=== PATIENT | male | born 1950 | race African-American/Black ===

== ENCOUNTER 2017-08-10 07:33 | Inpatient (IN) | payer OTHER ==
[~2017-08-10] VITALS: Ht 182.9 cm; Wt 78.1 kg
[2017-08-10] VITALS (36 sets, daily range): BP systolic 91–147; BP diastolic 62–96
--- NOTE | ~2017-08-10 | EEG ---
[facility] [place] [address] ELECTROENCEPHALOGRAM Name: SIVAN BAUMANN Room #: 240-P ADM IN M.R.#: [id number] Admission: 08/10/17 Attend Phys: Freddie Amaya DO Discharge: Date of : 54 Report #: [id number] THIS REPORT FOR: //name// CC: Freddie Garcia DATE OF SERVICE: 08/11/2017 This patient is being evaluated for seizures. EEG was done by placing the electrodes by standard 10-20 system of electrode placement. Both referential and sequential montages were used for recording. Background activity in this patient's EEG is poorly formed. It would appear it is about 6 Hz and 30 microvolt. A lot of movement in both frontal areas was noticed. Dust Sampler did not notice any eye movements there. It is more prominent on the right side as compared to the left side. Photic stimulation is unremarkable. IMPRESSION: This is an abnormal electroencephalogram because it is slow in generalized fashion. He appeared to be having slowing in both frontal areas, especially on the right side. Clinical correlation is recommended. Thank you very much for this referral. <ELECTRONICALLY SIGNED> By: Deangelo Fuentes MD 08/11/17 1816 1141 1149 Deangelo Fuentes MD /nt
--- NOTE | ~2017-08-10 | EEG ---
[facility] [place] [address] ELECTROENCEPHALOGRAM Name: SIVAN BAUMANN Room #: 403-P ADM IN M.R.#: [id number] Admission: 08/10/17 Attend Phys: Freddie Amaya DO Discharge: Date of : 54 Report #: [id number] THIS REPORT FOR: //name// CC: Freddie Garcia This patient's EEG was done for comparison with the last. EEG is still masked by a lot of artifact. It is very difficult to interpret. It would appear that this patient's EEG is showing periodic activities in the right frontal area. That can be an eye movement artifact, but if there is clinical correlation present, that may represent seizure activity coming from there. Photic stimulation is unremarkable. IMPRESSION: This is an abnormal EEG. It would appear that this patient is showing epileptiform activity in the right frontal area. However, that can also be an eye movement artifact and therefore, clinical correlation is recommended to see if there is any seizure activity on the left side. Thank you very much for this referral. <ELECTRONICALLY SIGNED> By: Deangelo Fuentes MD 08/14/17 1901 0603 0647 Deangelo Fuentes MD /nt
--- NOTE | ~2017-08-10 | HC ---
[facility] [place] [address] CONSULTATION Name: SIVAN BAUMANN Room #: 240-P ADM IN M.R.#: [id number] Admission: 08/10/17 Attend Phys: Freddie Amaya DO Discharge: Date of : 54 Report #: [id number] THIS REPORT FOR: //name// CC: Freddie Garcia DATE OF SERVICE: 08/10/2017 PRIMARY CARE PHYSICIAN: [facility]. REFERRING PHYSICIAN: Freddie Amaya DO. REASON FOR REFERRAL: Respiratory failure, seizure disorder. HISTORY OF PRESENT ILLNESS: The patient is a 66-year-old male who was brought to the Emergency Room after a seizure activity. In the ER, the patient was felt to be unstable, tachycardic, hypertensive and then hypotensive. The patient was electively intubated to protect the airways. A pulmonary consultation was requested. The patient has a history of seizure disorder. He is normally followed at [facility]. He is on seizure medications. Depakote level obtained in the ER was subtherapeutic. According to the family, patient has been on Vimpat, Keppra and Depakote. According to the son, the patient was in his usual state of health until yesterday evening. Yesterday evening, he heard a thud on the floor. When he got to his bedroom, the patient was found to be seizing on the floor. EMS was summoned. Currently, he is intubated and sedated. PAST MEDICAL HISTORY: Notable for seizure disorder followed at [facility] at [facility], hypertension, atrial fibrillation, coronary artery disease diagnosed in 1994. ALLERGIES: CODEINE, reactions not specified. HOME MEDICATIONS: Incomplete. FAMILY HISTORY: Noncontributory. SOCIAL HISTORY: Incomplete. REVIEW OF SYSTEMS: Deferred as the patient is intubated. [facility] [address] [place] [address] CONSULTATION Name: SIVAN BAUMANN Room #: 240-P [facility] IN [facility]#: [id number] Admission: 08/10/17 Attend Phys: Freddie Amaya DO Discharge: Date of : 54 Report #: [id number] PHYSICAL EXAMINATION: GENERAL: He is sedated, stable. VITAL SIGNS: Temperature is 98.4 degrees Fahrenheit, pulse is 107, respiratory rate is 16, blood pressure is 116/78 mmHg, saturation 100%. HEENT: Normocephalic, atraumatic. The patient is orally intubated. NECK: Supple, without lymphadenopathy or thyromegaly. CHEST: Breath sounds are clear without rales or wheezes. CARDIOVASCULAR: Normal S1, S2. No murmurs or gallop. There is no JVD. There is no carotid bruit. Pulses are 2+/4+ bilaterally. ABDOMEN: Soft, nontender, no organomegaly or masses felt. GENITOURINARY: Deferred. RECTAL: Deferred. EXTREMITIES: There is no edema, cyanosis or clubbing. LABORATORY DATA: Chest x-ray is clear. ET tube approximately 2 cm above the ashley. CT head was unremarkable for any acute intracranial pathology. Urine drug screen was negative. Electrolytes: Sodium 141, potassium 3.1, chloride 101, CO2 is 20, BUN is 17, creatinine is 2.1. Liver function enzyme is mildly abnormal. WBC 9900, hemoglobin 14.9. Arterial blood gas revealed pH 7.35, pCO2 of 34, pO2 of 71 on FiO2 of 60%. Alcohol level was less than 0. Valproic acid was less than 3. Lactic acid of 10. IMPRESSION: 1. Seizure disorder, based on valproic acid level. The patient may not have been having taken his medications. Neurology is consulted. 2. Acute respiratory failure due to above. 3. History of coronary artery disease. 4. Renal insufficiency. Unclear if it is acute or chronic. 5. Hypertension. 6. History of atrial fibrillation. 7. Metabolic acidosis due to seizure disorder resulting in lactic acidosis, this should resolve over time. RECOMMENDATION: We will continue mechanical ventilation, deep vein thrombosis and gastrointestinal prophylaxis will be addressed. We will need to follow urine output and renal function closely given creatinine of 2.1. Seizure medication, we will defer to Neurology. We will try to wean off the ventilator once medically stable. Thank you for this consultation. <ELECTRONICALLY SIGNED> By: Seymour Reed MD 08/11/17 1530 1652 0375 Seymour Reed MD /nt
--- NOTE | ~2017-08-10 | EKG ---
[address] [address] ELECTROCARDIOGRAM REPORT Name: SIVAN BAUMANN Room #: 170-1 ADM IN M.R.#: [id number] Admission: 08/10/17 Attend Phys: Freddie Amaya DO Discharge: Date of : 54 Report #: [id number] THIS REPORT FOR: //name// [facility] ED Test Date: 2017-08-10 Test Time: 08:09:26 Pat Name: SIVAN BAUMANN Department: Room: 170 Gender: M Retail Pricing Coordinator: Maryana HARDY RN : 1950 Requested By: Cecy Matos Order Number: [id number] MD: Chung Schaefer Measurements Intervals [place] Rate: 90 P: [place]: QRS: 41 QRSD: 95 T: 36 QT: 423 QTc: 518 Interpretive Statements Atrial fibrillation Left ventricular hypertrophy Compared to ECG 10/12/2001 00:20:17 Electronically Signed On 08-10-2017 9:08:39 RACE BOARD ATTENDANT by Chung Schaefer [email or web address] <ELECTRONICALLY SIGNED> By: Chung Schaefer MD 08/10/17907 D: 01808 8 Chung Schaefer MD /JEANNE
--- NOTE | ~2017-08-10 | EEG ---
[facility] [place] [address] ELECTROENCEPHALOGRAM Name: SIVAN BAUMANN Room #: 403-P DIS IN M.R.#: [id number] Admission: 08/10/17 Attend Phys: Freddie Amaya DO Discharge: 08/20/17 Date of : 54 Report #: [id number] THIS REPORT FOR: //name// CC: Freddie Garcia DATE OF SERVICE: 08/18/2017 INDICATION FOR PROCEDURE: This patient is being evaluated by repeat EEG. INTERPRETATION: EEG was done by placing the electrodes by standard 10-20 system of electrode placement. Both referential and sequential montages were used for recording. Background activity in this patient's EEG is about 9-10 Hz and 30 microvolt. It is a symmetrical activity. The patient went to sleep that is associated with bilateral slowing and vertex sharp waves. Virtually, all the epileptiform activity was noticed in the prior EEG has resolved. IMPRESSION: Complete resolution of all the epileptiform activities, which was present in the prior electroencephalograms. Thank you very much for this referral. <ELECTRONICALLY SIGNED> By: Deangelo Fuentes MD 08/22/172001 29 08 Deangelo Fuentes MD /nt
--- NOTE | ~2017-08-10 | HC ---
[facility] [place] [address] CONSULTATION Name: SIVAN BAUMANN Room #: 240-P ADM IN M.R.#: [id number] Admission: 08/10/17 Attend Phys: Freddie Amaya DO Discharge: Date of : 54 Report #: [id number] THIS REPORT FOR: //name// CC: Freddie Garcia REASON FOR CONSULTATION: I was asked to evaluate concerning fever in the setting of seizure disorder and respiratory failure. HISTORY OF PRESENT ILLNESS: The patient was a 66-year-old, underlying history of seizure disorder, stroke, hypertension, ascending aortic aneurysm. He has been cared for mostly at [facility]. He was last seen in the Medicine [facility] approximately 4 weeks ago. Prior to that, he had been hospitalized for breakthrough seizures. He was hospitalized through the Emergency Room here on 08/10/2017 after his son found him have another seizure and fall on the floor. Prior to this, he was acting normal with no fever, chills or sweats. He was seen in the Emergency Room where MRI scan was unremarkable. Had documented seizure and postictal state. His medications were continued. Yesterday, he had temperature up to 102.2 degrees. He remains hemodynamically stable. He is on FiO2 of 40%, unable to give me any details of his history. The patient remains encephalopathic. ALLERGIES: CODEINE. MEDICATIONS: As noted on his MAR, which were reviewed. He was started on vancomycin and Zosyn yesterday. PAST MEDICAL HISTORY: Seizure disorder, hypertension, ascending aortic aneurysm of 5 cm, prediabetic, stroke, herniorrhaphy, colonoscopy. FAMILY HISTORY: Noncontributory. SOCIAL HISTORY: Smoker of cigarettes. Does not use alcohol or drugs. REVIEW OF SYSTEMS: Since his hospitalization here he has continued to be encephalopathic and on the ventilator. Now started having profuse diarrhea. Has indwelling Gee catheter. Good urine output. Right upper extremity PICC. He is sedated. PHYSICAL EXAMINATION: VITAL SIGNS: Afebrile and hemodynamically stable. GENERAL: He was tachycardic. He was sedated. On moving the patient or stimulating him, he had rapid alternating movements involving his head and his right upper extremity. SKIN: Unremarkable. LYMPH: Unremarkable. HEENT: Pupils were reactive to light. He had mild scleral edema. Orally [facility] [address] [place] [address] CONSULTATION Name: SIVAN BAUMANN Room #: [address] [place] [address] IN M.R.#: [id number] Admission: 08/10/17 Attend Phys: Freddie Amaya DO Discharge: Date of : 54 Report #: [id number] intubated, on tube feeding. LUNGS: Clear. HEART: Regular, without murmur. ABDOMEN: Soft. Rectal tube was in place with green liquid stool. GENITOURINARY: External genitalia unremarkable with indwelling Gee catheter. EXTREMITIES: The left lower extremity had mild contracture at the knee. LABORATORY DATA: Sodium 140, potassium 3.5, bicarbonate 28, creatinine 0.9. Liver function tests normal. Lactate 10. CPK 209. Troponin negative. Hemoglobin 14, platelet count 134,000, white count 7.4, 26% bands. C. diff PCR is pending. MRSA screen negative. Urinalysis unremarkable. Blood cultures are negative. Sputum, normal ching. Urine culture negative. Chest x-ray, right upper extremity PICC with basilar atelectasis. MRI scan of the head negative. IMPRESSION: Exacerbation of seizure disorder. Appears to continue to have seizure activity, and most notable on his face and right upper extremity. Now with diarrhea, currently indeterminate in etiology. There was no predating report of diarrheal illness. PLAN: We will continue his current antibiotic program another 24 hours. I would like to see how the patient responds off sedation. I am suspecting fever may be related to his ongoing seizure activity. We will check stools for C. difficile by PCR. I doubt other bacterial etiology as cause for colitis. If his fever should persist through the next 24 hours, I would recommend lumbar puncture to further complete the evaluation. Tomorrow morning we will repeat his CBC, chemistry and chest x-ray. Discussed with nursing staff. <ELECTRONICALLY SIGNED> By: Shaquille Hare MD 08/13/17 [phone] Shaquille Hare MD /nt
--- NOTE | ~2017-08-10 | EEG ---
[facility] [place] [address] ELECTROENCEPHALOGRAM Name: SIVAN BAUMANN Room #: 403-P ADM IN M.R.#: [id number] Admission: 08/10/17 Attend Phys: Freddie Amaya DO Discharge: Date of : 54 Report #: [id number] THIS REPORT FOR: //name// CC: Freddie Garcia DATE OF SERVICE: 08/13/2017 This patient's background activity on the left side is about 8 Hz and 30 microvolts. On the right side, either a lot of artifact is present or a lot of seizure activity is present. It is difficult to tell. Photic stimulation is unremarkable. IMPRESSION: This patient's EEG shows a lot of artifact or seizure activity arising from the right cerebral hemisphere. Clinical correlation is recommended. Thank you very much for this referral. <ELECTRONICALLY SIGNED> By: Deangelo Fuentes MD 08/14/17 1901 1318 1356 Deangelo Fuentes MD /nt
[2017-08-10 08:15] LABS: BASOPHILS 0.3 % (0.0-2.0); EOSINOPHILS 0.3 % (0.0-3.0); HEMATOCRIT 44.7 % (42.0-52.0); HEMOGLOBIN 14.9 gm/dL (14.0-18.0); LYMPHOCYTES 13.1 % (24.0-44.0); MCH 32.2 pg (26.0-34.0); MCHC 33.3 g/dL (28.0-37.0); MCV 96.6 fL (80.0-100.0); MONOCYTES 5.4 % (1.0-8.0); PLATELET COUNT 232 thou/uL (150-400); POLYS 80.9 % (36.0-66.0); RBC 4.63 mil/uL (4.50-6.00); RDW 14.4 % (10.5-14.5); WBC 9.9 thou/uL (4.0-11.0)
[2017-08-10 08:23] LABS: BE(vivo) -3.3 mmol/L (-2 to +3); HCO3 21.2 mmol/L (22.0-26.0); PCO2 36.8 mmHg (35.0-45.0); PO2 71.9 mmHg (80.0-100.0); pH 7.378 (7.360-7.450); sO2 94.3 % (92.0-98.0)
[2017-08-10 08:24] LABS: CALCIUM 9.6 mg/dL (8.5-10.1); CREATININE 2.1 mg/dL (0.7-1.3); POTASSIUM 3.1 mmol/L (3.5-5.1)
[2017-08-10 08:33] LABS: TROPONIN-I 0.05 ng/mL (<0.06)
[2017-08-10 09:21] LABS: ALBUMIN 3.9 g/dL (3.4-5.0); DIRECT BILIRUBIN < 0.1 mg/dL (<0.1-0.3); SGOT 22 U/L (15-37); SGPT 26 U/L (30-65); TOTAL BILIRUBIN 0.3 mg/dL (<0.1-1.0); TOTAL PROTEIN 7.5 g/dL (6.4-8.2)
[2017-08-10 09:27] LABS: BE(vivo) -5.6 mmol/L (-2 to +3); HCO3 19.1 mmol/L (22.0-26.0); PCO2 34.8 mmHg (35.0-45.0); pH 7.358 (7.360-7.450); sO2 99.4 % (92.0-98.0)
[2017-08-10 11:05] LABS: URINE BILIRUBIN NEGATIVE (Negative); URINE BLOOD TRACE (Negative); URINE CLARITY CLEAR; URINE COLOR YELLOW; URINE GLUCOSE-RANDOM* NEGATIVE (Negative); URINE KETONES NEGATIVE (Negative); URINE LEUKOCYTES NEGATIVE (Negative); URINE NITRITE NEGATIVE (Negative); URINE PROTEIN (DIPSTICK) NEGATIVE (Negative); URINE SPECIFIC GRAVITY <= 1.005 (1.005-1.035); URINE UROBILINOGEN 0.2 E.U./dl (0.2-1.0)
[2017-08-10 11:22] LABS: AMP/METHAMP Negative (Negative); BARBITURATES Negative (Negative); BENZODIAZEPINES Negative (Negative); COCAINE Negative (Negative); METHADONE Negative (Negative); OPIATES Negative (Negative); PCP Negative (Negative)
[2017-08-10] MEDS ORDERED: ASPIR 8181 MG PO ×2 (16:08)
[2017-08-10] MEDS ORDERED: DEPAKOTE ER500 MG PO ×2 (16:09)
[2017-08-10] MEDS ORDERED: ATORVASTATIN CA40 MG PO ×2 (16:09)
[2017-08-10] MEDS ORDERED: HYDROCHLOROTHIA25 M2 PO ×2 (16:10)
[2017-08-10] MEDS ORDERED: PRINIVIL20 MG PO ×2 (16:10)
[2017-08-11] VITALS (29 sets, daily range): BP systolic 103–177; BP diastolic 70–95
[2017-08-11 04:49] LABS: BE(vivo) -2.2 mmol/L (-2 to +3); HCO3 22.5 mmol/L (22.0-26.0); PCO2 38.9 mmHg (35.0-45.0); PO2 180.3 mmHg (80.0-100.0); pH 7.381 (7.360-7.450); sO2 99.2 % (92.0-98.0)
[2017-08-11 04:54] LABS: ABSOLUTE NEUTROPHILS 7.7 thou/uL (1.4-8.2); BASOPHILS 0.2 % (0.0-2.0); EOSINOPHILS 0.2 % (0.0-3.0); HEMATOCRIT 39.5 % (42.0-52.0); HEMOGLOBIN 13.2 gm/dL (14.0-18.0); LYMPHOCYTES 6.7 % (24.0-44.0); MCH 32.1 pg (26.0-34.0); MCHC 33.5 g/dL (28.0-37.0); MCV 95.7 fL (80.0-100.0); POLYS 86.9 % (36.0-66.0); RBC 4.13 mil/uL (4.50-6.00); RDW 14.6 % (10.5-14.5); WBC 8.9 thou/uL (4.0-11.0)
[2017-08-11 05:00] LABS: CALCIUM 8.3 mg/dL (8.5-10.1); CREATININE 1.1 mg/dL (0.7-1.3); POTASSIUM 3.5 mmol/L (3.5-5.1)
[2017-08-11 06:16] LABS: PLATELET COUNT 157 thou/uL (150-400)
[2017-08-12] VITALS (25 sets, daily range): BP systolic 113–200; BP diastolic 67–105
[2017-08-12 04:30] LABS: HEMATOCRIT 41.2 % (42.0-52.0); HEMOGLOBIN 14.1 gm/dL (14.0-18.0); MCH 32.5 pg (26.0-34.0); MCHC 34.1 g/dL (28.0-37.0); MCV 95.2 fL (80.0-100.0); PLATELET COUNT 134 thou/uL (150-400); RBC 4.33 mil/uL (4.50-6.00); RDW 14.5 % (10.5-14.5); WBC 7.4 thou/uL (4.0-11.0)
[2017-08-12 04:36] LABS: CALCIUM 8.1 mg/dL (8.5-10.1); CREATININE 0.9 mg/dL (0.7-1.3)
[2017-08-12 05:14] LABS: ABSOLUTE NEUTROPHILS 5.9 thou/uL (1.4-8.2); TOXIC GRANULATION 1+
[2017-08-12 05:15] LABS: LARGE PLATELETS FEW
[2017-08-12 05:27] LABS: BE(vivo) 0.3 mmol/L (-2 to +3); HCO3 24.2 mmol/L (22.0-26.0); PCO2 37.2 mmHg (35.0-45.0); PO2 149.4 mmHg (80.0-100.0); pH 7.432 (7.360-7.450)
[2017-08-13] VITALS (24 sets, daily range): BP systolic 116–163; BP diastolic 62–95
[2017-08-13 05:21] LABS: BE(vivo) 0.1 mmol/L (-2 to +3); HCO3 24.4 mmol/L (22.0-26.0); PCO2 38.8 mmHg (35.0-45.0); PO2 133.2 mmHg (80.0-100.0); pH 7.417 (7.360-7.450); sO2 98.7 % (92.0-98.0)
[2017-08-13 05:39] LABS: ABSOLUTE NEUTROPHILS 5.9 thou/uL (1.4-8.2); BASOPHILS 0.4 % (0.0-2.0); HEMOGLOBIN 13.1 gm/dL (14.0-18.0); LYMPHOCYTES 4.2 % (24.0-44.0); MCHC 33.7 g/dL (28.0-37.0); MCV 95.1 fL (80.0-100.0); PLATELET COUNT 101 thou/uL (150-400); POLYS 85.4 % (36.0-66.0); RBC 4.11 mil/uL (4.50-6.00); RDW 14.4 % (10.5-14.5); WBC 6.9 thou/uL (4.0-11.0)
[2017-08-13 05:59] LABS: CALCIUM 8.2 mg/dL (8.5-10.1); CREATININE 0.8 mg/dL (0.7-1.3); POTASSIUM 3.4 mmol/L (3.5-5.1)
[2017-08-13 14:35] LABS: BE(vivo) 1.3 mmol/L (-2 to +3); HCO3 24.8 mmol/L (22.0-26.0); PCO2 35.8 mmHg (35.0-45.0); PO2 127.1 mmHg (80.0-100.0); pH 7.458 (7.360-7.450); sO2 98.7 % (92.0-98.0)
[2017-08-14] VITALS (20 sets, daily range): BP systolic 132–160; BP diastolic 73–89
[2017-08-14 05:25] LABS: ABSOLUTE NEUTROPHILS 5.3 thou/uL (1.4-8.2); BASOPHILS 0.3 % (0.0-2.0); EOSINOPHILS 1.4 % (0.0-3.0); HEMATOCRIT 35.6 % (42.0-52.0); HEMOGLOBIN 12.1 gm/dL (14.0-18.0); LYMPHOCYTES 5.5 % (24.0-44.0); MCH 32.2 pg (26.0-34.0); MCV 94.6 fL (80.0-100.0); MONOCYTES 9.6 % (1.0-8.0); PLATELET COUNT 102 thou/uL (150-400); POLYS 83.2 % (36.0-66.0); RBC 3.76 mil/uL (4.50-6.00); RDW 14.3 % (10.5-14.5); WBC 6.4 thou/uL (4.0-11.0)
[2017-08-14 05:33] LABS: CALCIUM 8.2 mg/dL (8.5-10.1); CREATININE 0.7 mg/dL (0.7-1.3); POTASSIUM 3.1 mmol/L (3.5-5.1)
[2017-08-15 04:27] VITALS: BP 150/83
[2017-08-15 06:50] LABS: HEMATOCRIT 36.1 % (42.0-52.0); HEMOGLOBIN 12.3 gm/dL (14.0-18.0); MCH 31.9 pg (26.0-34.0); MCHC 34.1 g/dL (28.0-37.0); MCV 93.5 fL (80.0-100.0); RBC 3.86 mil/uL (4.50-6.00); RDW 14.1 % (10.5-14.5); WBC 6.5 thou/uL (4.0-11.0)
[2017-08-15 06:58] LABS: CALCIUM 8.5 mg/dL (8.5-10.1); CREATININE 0.8 mg/dL (0.7-1.3); POTASSIUM 3.1 mmol/L (3.5-5.1)
[2017-08-15 08:00] VITALS: BP 110/64
[2017-08-15 08:35] VITALS: BP 169/89
[2017-08-15 16:00] VITALS: BP 162/91
[2017-08-15 19:59] VITALS: BP 148/84
[2017-08-16 03:35] VITALS: BP 138/65
[2017-08-16 08:00] VITALS: BP 163/86
[2017-08-16 16:44] VITALS: BP 176/92
[2017-08-16 17:50] VITALS: BP 160/81
[2017-08-16 19:10] VITALS: BP 145/76
[2017-08-17] VITALS (8 sets, daily range): BP systolic 144–169; BP diastolic 75–87
[2017-08-17 08:14] LABS: HEMATOCRIT 34.4 % (42.0-52.0); HEMOGLOBIN 11.5 gm/dL (14.0-18.0); MCH 31.8 pg (26.0-34.0); MCHC 33.5 g/dL (28.0-37.0); MCV 94.8 fL (80.0-100.0); PLATELET COUNT 118 thou/uL (150-400); RBC 3.63 mil/uL (4.50-6.00); RDW 15.1 % (10.5-14.5); WBC 7.4 thou/uL (4.0-11.0)
[2017-08-17 08:26] LABS: CALCIUM 8.5 mg/dL (8.5-10.1); TOTAL BILIRUBIN 0.2 mg/dL (<0.1-1.0); TOTAL PROTEIN 5.5 g/dL (6.4-8.2)
[2017-08-17 08:28] LABS: ABSOLUTE NEUTROPHILS 4.6 thou/uL (1.4-8.2); ANISOCYTOSIS 1+
[2017-08-17 08:29] LABS: POLYCHROMASIA OCCASIONAL
[2017-08-17 19:16] LABS: URINE BILIRUBIN NEGATIVE (Negative); URINE BLOOD NEGATIVE (Negative); URINE CLARITY CLEAR; URINE COLOR YELLOW; URINE GLUCOSE-RANDOM* NEGATIVE (Negative); URINE KETONES NEGATIVE (Negative); URINE LEUKOCYTES-REFLEX NEGATIVE (Negative); URINE NITRITE-REFLEX NEGATIVE (Negative); URINE PROTEIN (DIPSTICK) NEGATIVE (Negative); URINE SPECIFIC GRAVITY 1.015 (1.005-1.035); URINE UROBILINOGEN 0.2 E.U./dl (0.2-1.0)
[2017-08-18 04:55] VITALS: BP 148/76
[2017-08-18 07:17] LABS: HEMATOCRIT 36.5 % (42.0-52.0); HEMOGLOBIN 12.2 gm/dL (14.0-18.0); MCH 31.7 pg (26.0-34.0); MCHC 33.5 g/dL (28.0-37.0); MCV 94.7 fL (80.0-100.0); RBC 3.85 mil/uL (4.50-6.00); RDW 14.6 % (10.5-14.5); WBC 8.8 thou/uL (4.0-11.0)
[2017-08-18 07:41] LABS: CALCIUM 8.8 mg/dL (8.5-10.1); CREATININE 0.9 mg/dL (0.7-1.3); POTASSIUM 3.4 mmol/L (3.5-5.1)
[2017-08-18 08:00] VITALS: BP 170/90
[2017-08-18 12:00] VITALS: BP 162/86
[2017-08-18 12:49] LABS: MAGNESIUM 2.1 mg/dL (1.8-2.4)
[2017-08-18 15:50] VITALS: BP 183/89
[2017-08-18 19:54] VITALS: BP 168/77
[2017-08-19 03:23] VITALS: BP 158/82
[2017-08-19 06:10] LABS: HEMOGLOBIN 11.5 gm/dL (14.0-18.0); MCH 31.9 pg (26.0-34.0); MCHC 33.7 g/dL (28.0-37.0); MCV 94.9 fL (80.0-100.0); RBC 3.59 mil/uL (4.50-6.00); RDW 14.6 % (10.5-14.5); WBC 9.5 thou/uL (4.0-11.0)
[2017-08-19 06:17] LABS: CALCIUM 8.6 mg/dL (8.5-10.1); CREATININE 0.9 mg/dL (0.7-1.3); POTASSIUM 3.1 mmol/L (3.5-5.1)
[2017-08-19 07:12] VITALS: BP 171/92
[2017-08-19 16:00] VITALS: BP 158/77
[2017-08-19 19:43] VITALS: BP 167/87
[2017-08-20] VITALS: BP 136/79
[2017-08-20 04:00] VITALS: BP 140/80
[2017-08-20 09:29] VITALS: BP 161/82
[2017-08-20] MEDS ORDERED: VANCOMYCIN HCL10 GM PER TUBE ×2 (13:48)
[2017-08-20] MEDS ORDERED: VIMPAT100 MG PO ×2 (13:48)
[2017-08-20] MEDS ORDERED: DEPAKOTE ER500 MG PO ×2 (13:49)
[2017-08-20] MEDS ORDERED: LOPERAMIDE 2 MG2 M1 PO ×2 (13:49)
[2017-08-20] MEDS ORDERED: KEPPRA 500 MG500 M2 PO ×2 (13:49)
== END 2017-08-20 15:06 | DRG 208 ==
LOC: ER 07:33 → EROBS 08:46 → ICU 08:46 → 4N 08-14 16:40
PROVIDERS: Emergency Medicine; Family Medicine; Hospitalist; Internal Medicine Pulmonary Disease; Specialist
PROC: 5A1945Z Respiratory Ventilation, 24-96 Consecutive Hours (ICD-10-PCS; principal; 2017-08-10)
PROC: 0BH17EZ Insertion of Endotracheal Airway into Trachea, Via Natural or Artificial Opening (ICD-10-PCS; principal; 2017-08-10)
PROC: 02HV33Z Insertion of Infusion Device into Superior Vena Cava, Percutaneous Approach (ICD-10-PCS; 2017-08-10)
PROC: 02HV33Z Insertion of Infusion Device into Superior Vena Cava, Percutaneous Approach (ICD-10-PCS; 2017-08-14)
PROC: 02HV33Z Insertion of Infusion Device into Superior Vena Cava, Percutaneous Approach (ICD-10-PCS; 2017-08-15)
DX: J69.0 Pneumonitis due to inhalation of food and vomit (principal); J96.01 Acute respiratory failure with hypoxia; I16.1 Hypertensive emergency; N17.9 Acute kidney failure, unspecified; A04.72 Enterocolitis due to Clostridium difficile, not specified as recurrent; F17.210 Nicotine dependence, cigarettes, uncomplicated; I10 Essential (primary) hypertension; I48.91 Unspecified atrial fibrillation; G40.909 Epilepsy, unspecified, not intractable, without status epilepticus; I25.10 Atherosclerotic heart disease of native coronary artery without angina pectoris; Z88.6 Allergy status to analgesic agent; Z79.899 Other long term (current) drug therapy; Z86.73 Personal history of transient ischemic attack (TIA), and cerebral infarction without residual deficits; Z79.82 Long term (current) use of aspirin; Z28.21 Immunization not carried out because of patient refusal
CPT/HCPCS: 10078; 10790; 27000

== ENCOUNTER 2017-08-22 13:45 | Emergency (ER) | payer OTHER ==
[~2017-08-22] VITALS: Ht 182.9 cm; Wt 81.7 kg
[~2017-08-22 13:45] MED LIST: ASPIR 8181 MG PO; ATORVASTATIN CA40 MG PO; DEPAKOTE ER500 MG PO; HYDROCHLOROTHIA25 M2 PO; KEPPRA 500 MG500 M2 PO; LOPERAMIDE 2 MG2 M1 PO; PRINIVIL20 MG PO; VANCOMYCIN HCL10 GM PER TUBE; VIMPAT100 MG PO
[2017-08-22 14:59] LABS: ABSOLUTE NEUTROPHILS 10.8 thou/uL (1.4-8.2); BASOPHILS 0.6 % (0.0-2.0); EOSINOPHILS 0.3 % (0.0-3.0); HEMATOCRIT 35.4 % (42.0-52.0); HEMOGLOBIN 11.8 gm/dL (14.0-18.0); LYMPHOCYTES 14.7 % (24.0-44.0); MCH 31.6 pg (26.0-34.0); MCHC 33.4 g/dL (28.0-37.0); MCV 94.4 fL (80.0-100.0); MONOCYTES 8.2 % (1.0-8.0); PLATELET COUNT 405 thou/uL (150-400); POLYS 76.2 % (36.0-66.0); RBC 3.75 mil/uL (4.50-6.00); RDW 14.9 % (10.5-14.5); WBC 14.2 thou/uL (4.0-11.0)
[2017-08-22 15:07] LABS: ANION GAP 10 mmol/L (7-16); BUN 14 mg/dL (7-18); CALCIUM 8.9 mg/dL (8.5-10.1); CHLORIDE 104 mmol/L (98-107); CO2 25 mmol/L (21-32); GLUCOSE 143 mg/dL (74-106); POTASSIUM 3.7 mmol/L (3.5-5.1); SODIUM 139 mmol/L (136-145)
[2017-08-22 15:12] LABS: SALICYLATE < 2.8 mg/dL (2.8-20.0); SGOT 30 U/L (15-37); SGPT 41 U/L (30-65); TOTAL BILIRUBIN 0.3 mg/dL (<0.1-1.0); TOTAL PROTEIN 7.1 g/dL (6.4-8.2)
[2017-08-22 15:51] LABS: AMP/METHAMP Negative (Negative); BARBITURATES Negative (Negative); BENZODIAZEPINES Negative (Negative); COCAINE Negative (Negative); METHADONE Negative (Negative); OPIATES Negative (Negative); PCP Negative (Negative)
[2017-08-22 21:23] VITALS: BP 164/82
== END 2017-08-22 21:25 | disposition home or self-care (01) ==
LOC: ER 13:45
PROVIDERS: Physician Assistant
DX: Z00.8 Encounter for other general examination (principal); F91.9 Conduct disorder, unspecified; R56.9 Unspecified convulsions; I10 Essential (primary) hypertension; Z86.73 Personal history of transient ischemic attack (TIA), and cerebral infarction without residual deficits; Z88.5 Allergy status to narcotic agent; Z87.891 Personal history of nicotine dependence

== ENCOUNTER 2017-09-28 22:11 | Inpatient (IN) | payer OTHER ==
--- NOTE | ~2017-09-28 | EKG ---
[address] [place] [address] ELECTROCARDIOGRAM REPORT Name: SIVAN BAUMANN Room #: 246-P ADM IN M.R.#: [id number] Admission: 09/28/17 Attend Phys: Sy Hernandez MD Discharge: Date of : 54 Report #: [id number] THIS REPORT FOR: //name// [facility] ED Test Date: 2017-09-28 Test Time: 23:33:46 Pat Name: SIVAN BAUMANN Department: Room: 246 Gender: M Paper Maker: anabel : 1950 Requested By: Shaquille Bui Order Number: [id number] MD: Miller Patel Measurements Intervals [place] Rate: 84 P: 64 [place]: 158 QRS: 24 QRSD: 93 T: 59 QT: 382 QTc: 452 Interpretive Statements Sinus rhythm Left ventricular hypertrophy Baseline wander in lead(s) I,II,aVR Compared to ECG 08/10/2017 08:09:26 Atrial fibrillation no longer present Electronically Signed On 09-29-2017 8:03:41 PATENT SOLICITOR by Miller Patel [email or web address] <ELECTRONICALLY SIGNED> By: Millre Patel MD, [facility] 09/29/17 0803 [phone] Miller Patel MD, [facility] /EPI
--- NOTE | ~2017-09-28 | HC ---
[facility] [place] [address] CONSULTATION Name: SIVAN BAUMANN Room #: 246-P ADM IN M.R.#: [id number] Admission: 09/28/17 Attend Phys: Sy Hernandez MD Discharge: Date of : 54 Report #: [id number] THIS REPORT FOR: //name// CC: Sy Fuentes DATE OF SERVICE: 09/29/2017 HISTORY OF PRESENT ILLNESS: This is a 66-year-old male patient who was evaluated by me today. I talked to the Emergency Room physician who took care of him last night. I talked to the nurses looking after this patient. I talked to the patient's son. I have seen this patient in the past and I reviewed those records. This patient's history is that he started having seizure in early 1999s. There were alcohol related seizures. He has been tried on multiple medications, but his seizure has not been controlled. However, with the last regimen, he was doing better, but for some reason, he started having seizure last night. He had multiple seizures which were controlled after the medication. Talking to the son, it would appear that he is on 1500 mg b.i.d. of Keppra. He is on 100 mg b.i.d. of Vimpat and he takes 1000 mg of Depakote at night. He takes it only once a day and the best I can tell, it is not long acting. His level was subtherapeutic when he came in. He is postictal and fighting. That makes it very difficult to examine him. REVIEW OF SYSTEMS: Positive for dementia. Son provides 24-hour care. Does have a history of atrial fibrillation and aneurysms in the past. He used to drink very heavily, but has not done it since his seizures. That was his relevant 14-point review of system. PAST MEDICAL HISTORY: Positive for alcoholism and seizure. FAMILY HISTORY: Negative for congenital epilepsy. SOCIAL HISTORY: He has a history of drinking alcohol. PHYSICAL EXAMINATION: Not possible. He does not say anything. He does not follow any commands. It looks like he can move all 4 extremities. He does not have any meningeal sign. He does not have much respiratory difficulty. His cardiac examination is mostly unremarkable. His white count is 12. His temperature is 99.1, blood pressure is 144/108, pulse is 90. LABORATORY DATA: His CT scan was done in Emergency Room and it was unremarkable. [address] [address] CONSULTATION Name: SIVAN BAUMANN Room #: 246-P [facility] IN M.R.#: [id number] Admission: 09/28/17 Attend Phys: Sy Hernandez MD Discharge: Date of : 54 Report #: [id number] IMPRESSION: Breakthrough seizure. We will try to readjust his medication. I tried to talk to him. I do not think he understands anything, but I did talk to the patient's son and described to him what we are going to do. We will increase his Vimpat slowly to full dose of 200 mg b.i.d. He needs to be on Depakote twice a day, but IV Depakote he needs to be 4 times a day and we will monitor his level. His EEG will be reviewed today. The alignment technician I talked to indicated that he did not see any active epileptiform activity. RECOMMENDATIONS: I discussed with the son in detail and I talked to the nurses. We will readjust his medications and watch him for any side effect or any more seizures. We will do further intervention as indicated. More than 50 minutes of time was spent taking care of this patient today and majority of that time was spent counseling the patient's son and coordinating his care. Thank you very much for this referral. <ELECTRONICALLY SIGNED> By: Deangelo Fuentes MD 09/30/17 0721 1617 1808 Deangelo Fuentes MD /nt
--- NOTE | ~2017-09-28 | EEG ---
[facility] [place] [address] ELECTROENCEPHALOGRAM Name: SIVAN BAUMANN Room #: 246-P ADM IN M.R.#: [id number] Admission: 09/28/17 Attend Phys: Sy Hernandez MD Discharge: Date of : 54 Report #: [id number] THIS REPORT FOR: //name// CC: Sy Fuentes DATE OF SERVICE: 09/29/2017 This patient is admitted with seizure disorder. EEG was done by placing the electrodes by standard 10-20 system of electrode placement. Both referential and sequential montages were used for recording. A lot of artifact is present, but part of the EEG is interpretable. During that EEG, the patient's background activity appeared to be about 7 Hz and 20 microvolts. Photic stimulation is unremarkable. This patient became drowsy that is associated with bilateral slowing. Throughout the records, no active epileptiform activity was noticed. IMPRESSION: This patient's electroencephalogram does not demonstrate any active epileptiform activity. It is slow and poorly formed and that is a nonspecific abnormality, which can occur with dementia, encephalopathy, effect of psychotropic medication, etc. Clinical correlation is recommended. Thank you very much for this referral. <ELECTRONICALLY SIGNED> By: Deangelo Fuentes MD 09/30/17 0719 1839 1849 Deangelo Fuentes MD /nt
--- NOTE | ~2017-09-28 | EEG ---
[facility] [place] [address] ELECTROENCEPHALOGRAM Name: SIVAN BAUMANN Room #: 203-P [facility] IN M.R.#: [id number] Admission: 09/28/17 Attend Phys: Sy Hernandez MD Discharge: 10/06/17 Date of : 54 Report #: [id number] THIS REPORT FOR: //name// CC: Sy Fuentes DATE OF SERVICE: 10/03/2017 This patient is being evaluated for any residual seizure. EEG was done by placing the electrodes by standard 10-20 system of electrode placement. Both referential and sequential montages were used for recording. Background activity in this patient's EEG goes to about 9 Hz and 20 microvolts, is a symmetrical activity. The patient became drowsy that is associated with bilateral symmetrical sleep spindle and slowing. Throughout the record, no active epileptiform activity was noticed. IMPRESSION: This patient's EEG is within normal limits. Thank you very much for this referral. <ELECTRONICALLY SIGNED> By: Deangelo Fuentes MD 10/11/17 1552 1845 1859 Deangelo Fuentes MD /nt
[2017-09-28 22:18] VITALS: BP 107/58
[2017-09-28 22:44] LABS: BE(vivo) -6.5 mmol/L (-2 to +3); HCO3 19.4 mmol/L (22.0-26.0); PCO2 40.2 mmHg (35.0-45.0); sO2 95.9 % (92.0-98.0)
[2017-09-28 22:45] LABS: pH 7.302 (7.360-7.450)
[2017-09-28 22:47] LABS: ABSOLUTE NEUTROPHILS 9.2 thou/uL (1.4-8.2); BASOPHILS 0.6 % (0.0-2.0); EOSINOPHILS 0.3 % (0.0-3.0); HEMATOCRIT 37.1 % (42.0-52.0); HEMOGLOBIN 12.4 gm/dL (14.0-18.0); LYMPHOCYTES 8.1 % (24.0-44.0); MCH 32.4 pg (26.0-34.0); MCHC 33.4 g/dL (28.0-37.0); MCV 96.9 fL (80.0-100.0); MONOCYTES 4.3 % (1.0-8.0); PLATELET COUNT 213 thou/uL (150-400); POLYS 86.7 % (36.0-66.0); RBC 3.82 mil/uL (4.50-6.00); RDW 16.5 % (10.5-14.5); WBC 10.7 thou/uL (4.0-11.0)
[2017-09-28 23:00] LABS: ANION GAP 14 mmol/L (7-16); BUN 17 mg/dL (7-18); CALCIUM 8.5 mg/dL (8.5-10.1); CHLORIDE 108 mmol/L (98-107); CO2 24 mmol/L (21-32); CREATININE 1.2 mg/dL (0.7-1.3); GLUCOSE 160 mg/dL (74-106); SODIUM 146 mmol/L (136-145)
[2017-09-28 23:08] LABS: ALBUMIN 3.2 g/dL (3.4-5.0); MAGNESIUM 1.8 mg/dL (1.8-2.4); SGOT 11 U/L (15-37); SGPT 15 U/L (30-65); TOTAL BILIRUBIN 0.2 mg/dL (<0.1-1.0); TOTAL PROTEIN 6.5 g/dL (6.4-8.2); TROPONIN-I < 0.04 ng/mL (<0.06)
[2017-09-28] MEDS ORDERED: DEPAKOTE PO (23:10)
[2017-09-28] MEDS ORDERED: VIMPAT100 MG PO (23:10)
[2017-09-29] VITALS (24 sets, daily range): BP systolic 127–177; BP diastolic 62–119
[2017-09-29 00:19] LABS: URINE BILIRUBIN NEGATIVE (Negative); URINE BLOOD NEGATIVE (Negative); URINE CLARITY CLEAR; URINE COLOR YELLOW; URINE GLUCOSE-RANDOM* NEGATIVE (Negative); URINE KETONES NEGATIVE (Negative); URINE LEUKOCYTES-REFLEX NEGATIVE (Negative); URINE NITRITE-REFLEX NEGATIVE (Negative); URINE PROTEIN (DIPSTICK) 2+ (Negative); URINE SPECIFIC GRAVITY >= 1.030 (1.005-1.035); URINE UROBILINOGEN 0.2 E.U./dl (0.2-1.0)
[2017-09-29 00:34] LABS: SQUAMOUS None Seen /LPF (0-3)
[2017-09-29 00:35] LABS: AMORPHOUS URATES Moderate /LPF (None Seen); BACTERIA-REFLEX None Seen /HPF (None Seen); CRYSTALS None Seen /LPF (None Seen); HYALINE CASTS 0-3 Few /LPF (None Seen); MUCUS None Seen strn/LPF (None Seen); URINE RBC None Seen /HPF (0-2); URINE WBC-REFLEX None Seen /HPF (0-5)
[2017-09-29 00:36] LABS: AMP/METHAMP Negative (Negative); BARBITURATES Negative (Negative); BENZODIAZEPINES POSITIVE (Negative); COCAINE Negative (Negative); METHADONE Negative (Negative); OPIATES Negative (Negative); PCP Negative (Negative)
[2017-09-29 05:31] LABS: MCH 31.5 pg (26.0-34.0); MCHC 32.4 g/dL (28.0-37.0); MCV 97.2 fL (80.0-100.0); RBC 4.12 mil/uL (4.50-6.00); RDW 16.3 % (10.5-14.5)
[2017-09-29 05:38] LABS: CALCIUM 8.6 mg/dL (8.5-10.1); MAGNESIUM 1.9 mg/dL (1.8-2.4)
[2017-09-30] VITALS (21 sets, daily range): BP systolic 119–177; BP diastolic 63–138
[2017-09-30 04:04] LABS: CREATININE 0.9 mg/dL (0.7-1.3); POTASSIUM 4.1 mmol/L (3.5-5.1)
[2017-09-30 04:20] LABS: ABSOLUTE NEUTROPHILS 8.1 thou/uL (1.4-8.2); BASOPHILS 0.5 % (0.0-2.0); EOSINOPHILS 0.5 % (0.0-3.0); HEMATOCRIT 39.4 % (42.0-52.0); HEMOGLOBIN 12.8 gm/dL (14.0-18.0); LYMPHOCYTES 15.8 % (24.0-44.0); MCH 31.5 pg (26.0-34.0); MCHC 32.6 g/dL (28.0-37.0); MCV 96.7 fL (80.0-100.0); MONOCYTES 9.9 % (1.0-8.0); PLATELET COUNT 157 thou/uL (150-400); POLYS 73.3 % (36.0-66.0); RBC 4.07 mil/uL (4.50-6.00); RDW 16.1 % (10.5-14.5)
[2017-10-01] VITALS (12 sets, daily range): BP systolic 125–186; BP diastolic 80–107
[2017-10-02 04:00] VITALS: BP 105/85
[2017-10-02 12:21] VITALS: BP 178/102
[2017-10-02 16:51] VITALS: BP 175/90
[2017-10-02 19:41] LABS: HEMATOCRIT 39.4 % (42.0-52.0); HEMOGLOBIN 13.1 gm/dL (14.0-18.0); MCH 32.1 pg (26.0-34.0); MCHC 33.4 g/dL (28.0-37.0); RBC 4.1 mil/uL (4.50-6.00); RDW 15.7 % (10.5-14.5); WBC 5.4 thou/uL (4.0-11.0)
[2017-10-02 20:05] LABS: ALBUMIN 3.1 g/dL (3.4-5.0); CALCIUM 9.3 mg/dL (8.5-10.1); POTASSIUM 3.8 mmol/L (3.5-5.1); TOTAL BILIRUBIN 0.2 mg/dL (<0.1-1.0); TOTAL PROTEIN 7.1 g/dL (6.4-8.2)
[2017-10-02 20:09] VITALS: BP 166/84
[2017-10-03] VITALS (8 sets, daily range): BP systolic 147–189; BP diastolic 77–104
[2017-10-03 18:51] LABS: TSH 1.395 uIU/mL (0.358-3.740)
[2017-10-04 05:00] VITALS: BP 163/76
[2017-10-04 07:30] VITALS: BP 147/83
[2017-10-04 10:30] VITALS: BP 137/84
[2017-10-04 15:34] VITALS: BP 137/84
[2017-10-04 20:10] VITALS: BP 177/94
[2017-10-05 00:38] VITALS: BP 159/84
[2017-10-05 04:45] VITALS: BP 146/84
[2017-10-05 07:30] VITALS: BP 168/91
[2017-10-05 08:58] LABS: URINE BILIRUBIN NEGATIVE (Negative); URINE BLOOD NEGATIVE (Negative); URINE CLARITY CLEAR; URINE COLOR YELLOW; URINE GLUCOSE-RANDOM* NEGATIVE (Negative); URINE KETONES NEGATIVE (Negative); URINE LEUKOCYTES-REFLEX NEGATIVE (Negative); URINE NITRITE-REFLEX NEGATIVE (Negative); URINE PROTEIN (DIPSTICK) NEGATIVE (Negative); URINE SPECIFIC GRAVITY 1.015 (1.005-1.035); URINE UROBILINOGEN 0.2 E.U./dl (0.2-1.0)
[2017-10-05 10:30] VITALS: BP 147/74
[2017-10-05 19:37] VITALS: BP 142/89
[2017-10-06 03:06] LABS: HEMATOCRIT 36.8 % (42.0-52.0); HEMOGLOBIN 12.2 gm/dL (14.0-18.0); MCH 31.7 pg (26.0-34.0); MCHC 33.1 g/dL (28.0-37.0); MCV 95.9 fL (80.0-100.0); RBC 3.83 mil/uL (4.50-6.00); RDW 15.7 % (10.5-14.5); WBC 5.6 thou/uL (4.0-11.0)
[2017-10-06 03:20] LABS: ALBUMIN 2.4 g/dL (3.4-5.0); CALCIUM 8.5 mg/dL (8.5-10.1); POTASSIUM 3.6 mmol/L (3.5-5.1); TOTAL BILIRUBIN 0.2 mg/dL (<0.1-1.0)
[2017-10-06 04:17] VITALS: BP 129/74
[2017-10-06 07:39] VITALS: BP 158/90
[2017-10-06] MEDS ORDERED: VIMPAT100 MG PO (13:16)
[2017-10-06] MEDS ORDERED: PEPCID20 MG PO (13:16)
[2017-10-06] MEDS ORDERED: DEPAKOTE PO (13:16)
== END 2017-10-06 17:29 | DRG 100 ==
LOC: ER 22:11 → EROBS 23:03 → ICU 23:03 → 2N 10-01 20:53
PROVIDERS: Emergency Medicine; Hospitalist; Nurse Practitioner Acute Care; Psychiatry & Neurology Neuromuscular Medicine
DX: G40.909 Epilepsy, unspecified, not intractable, without status epilepticus (principal); G93.40 Encephalopathy, unspecified; E87.2 Acidosis; I10 Essential (primary) hypertension; E87.6 Hypokalemia; F03.90 Unspecified dementia, unspecified severity, without behavioral disturbance, psychotic disturbance, mood disturbance, and anxiety; R41.0 Disorientation, unspecified; Z86.73 Personal history of transient ischemic attack (TIA), and cerebral infarction without residual deficits; Z88.6 Allergy status to analgesic agent; Z87.891 Personal history of nicotine dependence; Z79.899 Other long term (current) drug therapy; Z79.82 Long term (current) use of aspirin; Z82.49 Family history of ischemic heart disease and other diseases of the circulatory system
CPT/HCPCS: 10078; 10081

== ENCOUNTER 2019-06-08 11:30 | Inpatient (IN) | payer OTHER ==
[~2019-06-08] VITALS: Ht 182.9 cm; Wt 93.0 kg
[~2019-06-08 11:30] MED LIST changes: +DEPAKOTE PO; +PEPCID20 MG PO
[2019-06-08 11:31] VITALS: BP 161/85
[2019-06-08 12:23] LABS: ABSOLUTE NEUTROPHILS 15.6 thou/uL (1.4-8.2); BASOPHILS 0.4 % (0.0-2.0); HEMATOCRIT 32.2 % (42.0-52.0); HEMOGLOBIN 10.3 gm/dL (14.0-18.0); LYMPHOCYTES 3.5 % (24.0-44.0); MCH 27.4 pg (26.0-34.0); MCHC 32.1 g/dL (28.0-37.0); MCV 85.3 fL (80.0-100.0); MONOCYTES 3.8 % (1.0-8.0); PLATELET COUNT 307 thou/uL (150-400); POLYS 92.3 % (36.0-66.0); RBC 3.77 mil/uL (4.50-6.00); RDW 17.1 % (10.5-14.5); WBC 16.9 thou/uL (4.0-11.0)
[2019-06-08 12:37] LABS: CALCIUM 9.7 mg/dL (8.5-10.1); CREATININE 1.6 mg/dL (0.7-1.3); POTASSIUM 3.4 mmol/L (3.5-5.1)
--- NOTE | 2019-06-08 12:43 | NUR ---
ATTEMPTED TO CALL [facility] AT 12:38 P.M. TO INQUIRE ABOUT WHEN THE PT'S TOE AMPUTATION WAS. THIS COSTUME SHOP COORDINATOR WAS PLACED ON HOLD AND NO ONE EVER CAME BACK TO THE PHONE. A REPEAT CALL WAS PLACED AT 12:40 P.M. TO INQUIRE AGAIN ABOUT WHEN THE PT'S TOE WAS AMPUTATED. THIS COSTUME SHOP COORDINATOR WAS PLACED ON HOLD A SECOND TIME IN WHICH NO ONE EVER CAME BACK ON THE PHONE. NUPUR KAPLAN NOTIFIED.
[2019-06-08] MEDS ORDERED: HUMALOG100 UNIT/1 SUBQ (12:45)
[2019-06-08] MEDS ORDERED: LANTUS SUBQ (12:45)
[2019-06-08] MEDS ORDERED: DIOCTO50 MG/5 ML PO (12:46)
[2019-06-08] MEDS ORDERED: KEPPRA100 MG/1 M PO (12:46)
[2019-06-08] MEDS ORDERED: MICROZIDE12.5 MG PO (12:46)
[2019-06-08] MEDS ORDERED: ZESTRIL20 MG PO (12:47)
[2019-06-08] MEDS ORDERED: SEROQUEL 25 MG25 M1 PO (12:47)
[2019-06-08] MEDS ORDERED: MELATIN3 MG PO (12:47)
[2019-06-08] MEDS ORDERED: VIMPAT200 MG PO (12:48)
[2019-06-08] MEDS ORDERED: ULTRAM 50MG TAB50 MG PO (12:48)
[2019-06-08] MEDS ORDERED: XARELTO20 MG PO (12:48)
[2019-06-08] MEDS ORDERED: TRAMADOL 50 MG50 MG PO (12:48)
[2019-06-08 12:52] LABS: ALBUMIN 3.5 g/dL (3.4-5.0); TOTAL BILIRUBIN 0.3 mg/dL (<0.1-1.0); TOTAL PROTEIN 8.1 g/dL (6.4-8.2)
[2019-06-08 13:06] LABS: URINE BILIRUBIN NEGATIVE (Negative); URINE BLOOD 1+ (Negative); URINE CLARITY CLEAR; URINE COLOR YELLOW; URINE GLUCOSE-RANDOM* NEGATIVE (Negative); URINE KETONES NEGATIVE (Negative); URINE LEUKOCYTES-REFLEX NEGATIVE (Negative); URINE NITRITE-REFLEX NEGATIVE (Negative); URINE PROTEIN (DIPSTICK) NEGATIVE (Negative); URINE UROBILINOGEN 0.2 E.U./dl (0.2-1.0)
[2019-06-08 13:28] VITALS: BP 161/85
[2019-06-08 13:30] LABS: BACTERIA-REFLEX 1-9 Few /HPF (None Seen); CASTS None Seen /LPF (None Seen); CRYSTALS None Seen /LPF (None Seen); SQUAMOUS None Seen /LPF (0-3); URINE RBC 0-2 Rare /HPF (0-2); URINE WBC-REFLEX None Seen /HPF (0-5)
[2019-06-08 14:04] VITALS: BP 129/59
[2019-06-08 14:57] VITALS: BP 124/67
--- NOTE | 2019-06-08 16:15 | NUR ---
PATIENT ADMIT TO UNIT AT 1450. AWAKE/ ALERT. NOT ABLE TO ANSWER ANY QUESTION. NO DISDRESS NOTED. LOW GRADE FEVER. FALL PRECAUTION ON. WILL MOVE PATIENT CLOSE TO NURSE STATION TO MONITOR.
[2019-06-08 20:10] VITALS: BP 154/73
[2019-06-08 23:33] VITALS: BP 119/53
[2019-06-09 02:57] VITALS: BP 144/64
--- NOTE | 2019-06-09 03:32 | NUR ---
0300 PATIENT IN CHAIR YELLING HE HAS TO PEE. ASSISTED HIM TO STAND WITH ASSIST OF 2, GAIT BELT IN PLACE. PATIENT BECAME AGITATED PUSHING AND HITTING OUT AT STAFF. CALLED FOR ASSISTANCE TO BATHROOM AND TO BED. BED ALARM ON. CALLED GEOSPATIAL EXTRACTOR ANALYSIS FOR ORDERS. TEMP. 100.7. TYLENOL AND HALDOL PO GIVEN. 0320 PATIENT CALM AND COOPERATIVE AT THIS TIME. HAS SLEPT MOST OF SHIFT. CONTINUE TO ASSES CLOSELY, MAINTAIN SAFE ENVIRONMENT. WORKING ON GOALS AND PLAN OF CARE FOR NOC. NOT PROGRESSING TOWARDS DISCHARGE GOALS AT THIS TIME.
[2019-06-09 05:05] LABS: ABSOLUTE NEUTROPHILS 7.5 thou/uL (1.4-8.2); BASOPHILS 0.4 % (0.0-2.0); HEMATOCRIT 29.1 % (42.0-52.0); HEMOGLOBIN 9.3 gm/dL (14.0-18.0); LYMPHOCYTES 11.9 % (24.0-44.0); MCH 27.7 pg (26.0-34.0); MCHC 32.1 g/dL (28.0-37.0); MCV 86.3 fL (80.0-100.0); MONOCYTES 6.1 % (1.0-8.0); PLATELET COUNT 238 thou/uL (150-400); POLYS 81.6 % (36.0-66.0); RBC 3.37 mil/uL (4.50-6.00); WBC 9.2 thou/uL (4.0-11.0)
[2019-06-09 05:11] LABS: CALCIUM 8.4 mg/dL (8.5-10.1); CREATININE 1.4 mg/dL (0.7-1.3); MAGNESIUM 1.9 mg/dL (1.8-2.4); POTASSIUM 3.1 mmol/L (3.5-5.1)
[2019-06-09 07:32] VITALS: BP 119/56
[2019-06-09 11:32] VITALS: BP 137/64
--- NOTE | 2019-06-09 13:14 | NUR ---
WOUND CONSULT; ROUNDING WITH DR DELGADO. THE LEFT FOR GREAT TOE AMPUTATION WOUND HAS SOME PURULRNT-LIKE DRAIAGE. DR DELGADO DID A SHARP DEBRIDEMENT OF THE NON VIABLE ISSUE DOWN TO HEALTHY RED BLEEDING TISSUE. THE BLEEDING RESOLVED QUICKLY. RECOMMENDATIONS; PURACOL AG, XEROFORM, SECURE WITH LEANN DAILY/PRN RN NOTIFIED
--- NOTE | 2019-06-09 14:00 | NUR ---
Nutrition: pt admitted with sepsis, foot infection vs osteo. Nonhealing left great toe amputation site, S/P sharp debridement of non viable tissue by wound care. Pt eating 75-100% of meals. Unable to interview pt, hx of advanced dementia. No weight loss per records. RD will offer ensure max daily to support wound healing needs. Low nutrition risk.
--- NOTE | 2019-06-09 15:54 | NUR ---
INITIAL ASSESSMENT: Received consult for discharge planning. JORJE reviewed chart and spoke with nursing and attending physician. Pt was admitted from [facility] due to fever/sepsis/foot infection. Pt is currently on IV abx. Wound care consulted. Bedside debridement completed earlier today. Pt with hx of dementia. Pt recently had right great toe amputated. JORJE spoke with pt's son, Theo, via phone. Introduced role of JORJE. Pt had two amputated at [facility], and was sent to [facility] for rehab. Pt has an $831 [place] spenddown [place] his [place]. Pt has been private pay/nursing home care sinil 05/29. Pt normally lives at home with Theo. Pt does not use any DME for ambulation. No hx of services. Pt's PCP is Dr. Maria E Ruth at [facility]. Goal is for pt to eventually return home. Pt will return to [facility] when medically stable for discharge. habitat conservation planner to fax clinical updates to [facility] tomorrow. JORJE is following to assist as needed with discharge planning.
[2019-06-09 16:21] VITALS: BP 148/72
--- NOTE | 2019-06-09 17:33 | NUR ---
ASSUMED PATIENT CARE AT 0700. ALERT TO SELF.IMPULSIVE. WALK UNSTEADY GAIT. GAIT AGUILA ON ALL THE TIME. WOUND CARE PER ORDER. PROGRESSING TOWARDS POC GOALS.
[2019-06-09 19:23] VITALS: BP 131/57
[2019-06-10 05:23] VITALS: BP 139/71
[2019-06-10 08:02] VITALS: BP 150/76
--- NOTE | 2019-06-10 10:31 | NUR ---
DISCHARGE PLANNING. CALL PLACED TO [facility] LIAISON TO VERIFY THAT PATIENT IS A ALF CARE RESIDENT AT [facility]. PER [facility], PATIENT IS THEIR RESIDENT AND ARE ACCEPTING OF PATIENT AT DISCHARGE. [facility] NOTIFIED THAT PATIENT WILL NEED SKILLED PLACEMENT PRIOR TO RETURNING TO HIS LTC UNIT. CLINICAL INFORMATION FAXED TO [facility] FOR INSURANCE AUTH PROCESS. UNIT SW AWARE. FOLLOWING TO ASSIST WITH DISCHARGE NEEDS.
[2019-06-10 11:52] VITALS: BP 138/66
--- NOTE | 2019-06-10 13:40 | NUR ---
SW reviewed chart and spoke with nursing and attending physician. Pt is progressing towards goals for disharge. Pt will most likely need to continue on IV abx when discharged. tool and production planner faxed clinical info to [facility] for review. Request for SNF authorization. JORJE is following to assist as needed with discharge planning.
[2019-06-10 15:25] VITALS: BP 146/71
--- NOTE | 2019-06-10 17:21 | NUR ---
PT knows his name and birthday, and he can follow some commands, but pt is confused and he gets out his bed or chair by himself without assist, pt is high fall risk, we keep closely to monitor pt to prevent fall, pt is continuing iv abx and wound care, pt's vs are stable , pt denies pain and n/v at this time.
[2019-06-10 20:22] VITALS: BP 144/78
[2019-06-10 21:54] LABS: CALCIUM 9.2 mg/dL (8.5-10.1); MAGNESIUM 2.2 mg/dL (1.8-2.4); POTASSIUM 4.1 mmol/L (3.5-5.1)
--- NOTE | 2019-06-11 02:45 | NUR ---
ASSUMED CARE FROMMDAY SHIFT PT SITTING UP CHAIR VERY IMPULSIVE ATTEMPTING TO GET UP FROM CHAIR PT TO BSC WITH ASSIST OF 2 . THEN PT PLACED IN BED , CONINTUE TO CLIMB OUT BED. MEDICATION TAKEN WIHTOUT DIFFICULTY BED ALARM ON FOR SAFETY. WASHCOAT WIPER SHOWS NSR. WILL CONITNUE WITH CURRENT PLAN OF CARE, WILL REPORT CHANGES OR ABNORMAL FINDINGS.
[2019-06-11 04:42] VITALS: BP 128/66
[2019-06-11 05:45] LABS: CALCIUM 8.9 mg/dL (8.5-10.1); CREATININE 1.1 mg/dL (0.7-1.3); POTASSIUM 3.6 mmol/L (3.5-5.1)
[2019-06-11 07:33] VITALS: BP 143/68
[2019-06-11 11:42] VITALS: BP 145/70
--- NOTE | 2019-06-11 12:52 | NUR ---
CM HAD VM FROM [facility] STATING PATIENT IS APPROVED FOR SNF TO [facility]. CM NOTIFIED SW AND IT SERVICE TECHNICIAN WE HAVE NOT YET HEARD FROM SNF FOR APPROVAL TO DISCHARGE TODAY.
--- NOTE | 2019-06-11 13:27 | NUR ---
DISCHARGE PLAN: SW reviewed chart and spoke with nursing and attending physician. Pt is medically stable for discharge back to [facility] today. SW notified that [facility] has insurance authorization. Awaiting final discharge orders/summary at this time. Center liaison to coordinate transportation. material planner to notify family and finalize discharge. SW is available to assist as needed with discharge planning.
[2019-06-11] MEDS ORDERED: LEVAQUIN 500 M500 M3 PO (13:31)
[2019-06-11] MEDS ORDERED: FLORANEX TABLE1 EACH PO (13:31)
[2019-06-11] MEDS ORDERED: BACTRIM DS TAB1 EAC1 PO (13:31)
[2019-06-11] MEDS ORDERED: ACETAMINOPHEN325 M1 PO (13:31)
[2019-06-11 16:15] VITALS: BP 166/77
--- NOTE | 2019-06-11 18:12 | NUR ---
PT ASSESSED AT START OF SHIFT. HAS BEEN CALM AND COOPERATIVE. UP IN THE RECLINER MOST OF SHIFT. WORKED W/ THERAPY THIS AFTERNOON. EATING AND DRINKING WELL. FOOT DSNG CHANGED NO DRAINAGE NOTED. PT TO RETURN TO [facility] AT 1700.
--- NOTE | 2019-06-20 11:57 | HC ---
[facility] [place] [address] CONSULTATION Name: SIVAN BAUMANN Room #: 352-P [facility] IN M.R.#: [id number] Admission: 06/08/19 Attend Phys: Parviz Diaz MD Discharge: 06/11/19 Date of : 54 Report #: [id number] THIS REPORT FOR: //name// CC: Parviz Diaz Kenneth Akkulugari DATE OF SERVICE: 06/09/2019 CHIEF COMPLAINT: Nonhealing surgical wound to the right foot following great toe amputation. HISTORY OF PRESENT ILLNESS: This is a 68-year-old male patient who was transferred from [facility] to the Emergency Department today. He had a fever of 102 and some drainage from his right foot. He has not been able to provide much information about himself. He was admitted to the hospital with toxic metabolic encephalopathy and I have been asked to see him with regard to wound care. PAST MEDICAL HISTORY: Positive for history of seizure disorder, hypertension and ascending thoracic aortic aneurysm, stroke in 2000, history of prediabetes, Wernicke encephalopathy, previous history of atrial fibrillation and recent right great toe amputation. FAMILY HISTORY: Known for heart disease. SOCIAL HISTORY: The patient has a past history of alcohol use and is a former smoker. MEDICATIONS: Listed include insulin, docusate sodium, Microzide, Keppra, Zestril, melatonin, quetiapine, lacosamide, Xarelto, Ultram, aspirin, Lipitor. ALLERGIES: CODEINE. REVIEW OF SYSTEMS: Not obtainable due to the patient's level of alertness. PHYSICAL EXAMINATION: VITAL SIGNS: Include temperature 36.3, pulse 76, respiratory rate 20, and blood pressure 166/77. GENERAL: This is a somewhat chronically ill-appearing male patient who appears to be in minimal distress. HEENT: Head normocephalic. Nose and throat are clear. NECK: Supple. LUNGS: Diminished. ABDOMEN: Soft. Bowel sounds present. EXTREMITIES: Lower extremities demonstrate diminished distal pulses. There appears to be a surgical wound following the amputation of the right great toe. [facility] [address] [place] [address] CONSULTATION Name: PASTORSIVAN DK Room #: 352-P [facility] IN M.R.#: [id number] Admission: 06/08/19 Attend Phys: Parviz Diaz MD Discharge: 06/11/19 Date of : 54 Report #: [id number] There is a mix of granulation with a slight amount of fibrin that is easily wiped away revealing a fairly clean base. He has a small diabetic ulcer to the tip of the right second toe. NEUROLOGIC: The patient appears to be symmetrical. He cannot answer any questions. LABORATORY DATA: Includes white blood cell count 16.9 with hemoglobin of 10.3, hematocrit of 32.2, platelet count is 307. Sodium 138, potassium 3.4, chloride 100, CO2 of 26, BUN 21, creatinine 1.6, glucose 144, calcium 9.7, total bilirubin 0.3, albumin is 3.5. CLINICAL IMPRESSION: 1. Nonhealing surgical wound to the right foot, status post great toe amputation. 2. Diabetic ulceration to the tip of the right second toe. 3. Acute mental status changes, advanced/advanced dementia. 4. Prediabetes. 5. History of seizure disorder. RECOMMENDATIONS: Recommend topical Puracol and Xeroform gauze daily to both areas. We will continue his current medications. Recommend PRAFO boots while he is in bed. PT, OT as tolerated and aggressive nutritional support. I appreciate being asked to see him in consultation. <ELECTRONICALLY SIGNED> By: Jean-Claude Carson MD 06/20/19 [id number] Jean-Claude Carson MD /nt
== END 2019-06-11 18:26 | DRG 871 ==
LOC: ER 11:30 → 3W 13:26 → EROBS 13:26 → 3W 14:01
PROVIDERS: Nurse Practitioner Family; Physician Assistant; ADMIT Internal Medicine
DX: A41.9 Sepsis, unspecified organism (principal); G92 Toxic encephalopathy; T81.41XA Infection following a procedure, superficial incisional surgical site, initial encounter; M86.8X7 Other osteomyelitis, ankle and foot; E51.2 Wernicke's encephalopathy; N17.9 Acute kidney failure, unspecified; E87.6 Hypokalemia; I10 Essential (primary) hypertension; G40.909 Epilepsy, unspecified, not intractable, without status epilepticus; I48.0 Paroxysmal atrial fibrillation; I71.2 Thoracic aortic aneurysm, without rupture; Y83.8 Other surgical procedures as the cause of abnormal reaction of the patient, or of later complication, without mention of misadventure at the time of the procedure; E11.69 Type 2 diabetes mellitus with other specified complication; E11.621 Type 2 diabetes mellitus with foot ulcer; Z86.73 Personal history of transient ischemic attack (TIA), and cerebral infarction without residual deficits; Z79.84 Long term (current) use of oral hypoglycemic drugs; Z88.5 Allergy status to narcotic agent; Z89.411 Acquired absence of right great toe; Z79.82 Long term (current) use of aspirin; Z87.891 Personal history of nicotine dependence; Z82.49 Family history of ischemic heart disease and other diseases of the circulatory system; Y92.89 Other specified places as the place of occurrence of the external cause
CPT/HCPCS: 10879